=== PATIENT | female | born 1940 | race Caucasian/White ===

== ENCOUNTER 2020-12-18 13:38 | Observation (INO) ==
[2020-12-18 14:34] LABS: Basophils # 0.1 10*3/uL (0.0-0.2); Basophils % 0.6 % (0.0-0.8); Eosinophils # 0.1 10*3/uL (0.0-0.87); Eosinophils % 1.4 % (0.00-10.9); Hematocrit 42.6 VOL% (35.7-47.0); Hemoglobin 13.3 GM/DL (12.0-16.0); Immature Granulocytes % 1.4 %; Immature Granulocytes Absolute 0.12 #; Lymphocytes # 1.2 10*3/uL (1.4-4.0); Lymphocytes % 13.1 % (21.3-54.2); Mean Corpuscular HGB Conc 31.2 GM/DL (32-36); Mean Corpuscular Volume 91.8 FL (87-102); Mean Platelet Volume 9.6 FL (9.6-12.0); Monocytes % 6.1 % (1.7-12.7); Neutrophils % 77.4 % (38.7-73.9); Platelet Count 279 T/CUMM (130-400); Red Blood Count 4.64 MC/CUMM (3.8-5.5); Red Cell Distribution Width 13.8 % (9.3-17.3); White Blood Count 8.8 T/CUMM (4-12)
[2020-12-18] MEDS ORDERED: hydrALAZINE 20 MG/1 ML VIAL IV STA (14:35)
[2020-12-18 14:47] LABS: PT Patient Result 10.5 SECS (9.8-11.9); Partial Thromboplastin Time 24.8 SECS (23.9-33.8)
[2020-12-18 14:54] LABS: Albumin 3.3 G/DL (3.4-5.0); Bilirubin,Total 0.4 MG/DL (0.2-1.0); Calcium 8.8 MG/DL (8.5-10.1); Osmolality,Calculated 277.4 MOS/KG (273-304); Potassium 3.7 MMOL/L (3.5-5.1); Total Protein 7.1 G/DL (5.0-7.5)
[2020-12-18] MEDS ORDERED: LABETALOL 20 MG/4 ML SYRINGE IV PRN (16:21)
[2020-12-18 16:54] LABS: Risk Ratio 3.68; VLDL CHOLESTEROL 39.4 MG/DL
[2020-12-18] MEDS ORDERED: ENOXAPARIN 40 MG/0.4 ML SYRINGE SUBCUT SCH (18:00)
[2020-12-18] MEDS: GABAPENTIN 300 MG CAPSULE PO SCH (21:36)
[2020-12-18] MEDS: traZODone 50 MG TABLET PO SCH (21:36)
[2020-12-19 07:28] LABS: Basophils # 0.1 10*3/uL (0.0-0.2); Basophils % 0.6 % (0.0-0.8); Eosinophils # 0.1 10*3/uL (0.0-0.87); Eosinophils % 1.2 % (0.00-10.9); Hematocrit 45.2 VOL% (35.7-47.0); Hemoglobin 14.3 GM/DL (12.0-16.0); Immature Granulocytes % 1.1 %; Immature Granulocytes Absolute 0.09 #; Lymphocytes # 1.2 10*3/uL (1.4-4.0); Lymphocytes % 14.5 % (21.3-54.2); Mean Corpuscular HGB Conc 31.6 GM/DL (32-36); Mean Corpuscular Volume 90.8 FL (87-102); Mean Platelet Volume 9.5 FL (9.6-12.0); Monocytes % 7.5 % (1.7-12.7); Neutrophils % 75.1 % (38.7-73.9); Platelet Count 283 T/CUMM (130-400); Red Blood Count 4.98 MC/CUMM (3.8-5.5); White Blood Count 8.3 T/CUMM (4-12)
[2020-12-19 07:44] LABS: Albumin 3.2 G/DL (3.4-5.0); Bilirubin,Total 0.4 MG/DL (0.2-1.0); Calcium 8.7 MG/DL (8.5-10.1); Osmolality,Calculated 275.7 MOS/KG (273-304); Potassium 3.5 MMOL/L (3.5-5.1); Total Protein 7.1 G/DL (5.0-7.5)
[2020-12-19] MEDS: LOSARTAN 50 MG TABLET PO SCH (08:33)
[2020-12-19] MEDS: LEVOTHYROXINE 125 MCG TABLET PO SCH (08:33)
[2020-12-19] MEDS: ASPIRIN EC 81 MG TABLET PO SCH (08:50)
[2020-12-19] MEDS: APIXABAN 5 MG TABLET PO SCH ×2 (08:50→20:19)
[2020-12-19] MEDS: ATORVASTATIN 40 MG TABLET PO SCH (09:12)
[2020-12-19] MEDS: amLODIPine 10 MG TABLET PO SCH (14:02)
[2020-12-19 17:03] LABS: Barbiturates Screen,Urine Negative (Negative); Benzodiazepines Screen,Urine Negative (Negative); Cannabinoid Screen,Urine Negative (Negative); Opiate Screen,Urine Positive (Negative); Phencyclidine Screen,Urine Negative (Negative)
[2020-12-19] MEDS: GABAPENTIN 300 MG CAPSULE PO SCH (20:18)
[2020-12-19] MEDS: traZODone 50 MG TABLET PO SCH (20:19)
[2020-12-20 06:10] LABS: Basophils # 0.1 10*3/uL (0.0-0.2); Basophils % 0.6 % (0.0-0.8); Eosinophils # 0.2 10*3/uL (0.0-0.87); Eosinophils % 2.3 % (0.00-10.9); Hematocrit 38.7 VOL% (35.7-47.0); Hemoglobin 12.1 GM/DL (12.0-16.0); Immature Granulocytes % 1.1 %; Immature Granulocytes Absolute 0.09 #; Lymphocytes # 1.5 10*3/uL (1.4-4.0); Lymphocytes % 18.8 % (21.3-54.2); Mean Corpuscular HGB Conc 31.3 GM/DL (32-36); Mean Corpuscular Volume 91.9 FL (87-102); Mean Platelet Volume 10.3 FL (9.6-12.0); Monocytes % 8.4 % (1.7-12.7); Neutrophils % 68.8 % (38.7-73.9); Platelet Count 244 T/CUMM (130-400); Red Blood Count 4.21 MC/CUMM (3.8-5.5); White Blood Count 7.9 T/CUMM (4-12)
[2020-12-20 06:25] LABS: Calcium 8.4 MG/DL (8.5-10.1); Osmolality,Calculated 285.1 MOS/KG (273-304); Potassium 3.4 MMOL/L (3.5-5.1)
[2020-12-20] MEDS ORDERED: POTASSIUM CHLORIDE 20 MEQ TABLET PO ONE (07:15)
[2020-12-20] MEDS: APIXABAN 5 MG TABLET PO SCH ×2 (09:15→20:28)
[2020-12-20] MEDS: ASPIRIN EC 81 MG TABLET PO SCH (09:15)
[2020-12-20] MEDS: amLODIPine 10 MG TABLET PO SCH (09:15)
[2020-12-20] MEDS: LOSARTAN 50 MG TABLET PO SCH (09:16)
[2020-12-20] MEDS: ATORVASTATIN 40 MG TABLET PO SCH (09:17)
[2020-12-20] MEDS: LEVOTHYROXINE 125 MCG TABLET PO SCH (09:17)
[2020-12-20] MEDS: POLYETHYLENE GLYCOL POWDER 17 GM PACK PO SCH (13:00)
[2020-12-20] MEDS: traZODone 50 MG TABLET PO SCH (20:28)
[2020-12-20] MEDS: GABAPENTIN 300 MG CAPSULE PO SCH (20:28)
[2020-12-21 04:43] LABS: Basophils % 0.4 % (0.0-0.8); Eosinophils # 0.2 10*3/uL (0.0-0.87); Eosinophils % 3.5 % (0.00-10.9); Hematocrit 36.9 VOL% (35.7-47.0); Hemoglobin 11.9 GM/DL (12.0-16.0); Immature Granulocytes % 1.3 %; Immature Granulocytes Absolute 0.09 #; Lymphocytes # 1.4 10*3/uL (1.4-4.0); Lymphocytes % 20.2 % (21.3-54.2); Mean Corpuscular HGB Conc 32.2 GM/DL (32-36); Mean Corpuscular Volume 90.2 FL (87-102); Mean Platelet Volume 10.2 FL (9.6-12.0); Monocytes % 9.9 % (1.7-12.7); Neutrophils % 64.7 % (38.7-73.9); Platelet Count 229 T/CUMM (130-400); Red Blood Count 4.09 MC/CUMM (3.8-5.5); White Blood Count 6.8 T/CUMM (4-12)
[2020-12-21 05:05] LABS: Calcium 8.1 MG/DL (8.5-10.1); Osmolality,Calculated 283.1 MOS/KG (273-304); Potassium 3.9 MMOL/L (3.5-5.1)
[2020-12-21] MEDS: POLYETHYLENE GLYCOL POWDER 17 GM PACK PO SCH (08:32)
[2020-12-21] MEDS: amLODIPine 10 MG TABLET PO SCH (08:34)
[2020-12-21] MEDS: ASPIRIN EC 81 MG TABLET PO SCH (08:34)
[2020-12-21] MEDS: ATORVASTATIN 40 MG TABLET PO SCH (08:34)
[2020-12-21] MEDS: LEVOTHYROXINE 125 MCG TABLET PO SCH (08:34)
[2020-12-21] MEDS: APIXABAN 5 MG TABLET PO SCH (08:35)
[2020-12-21] MEDS: LOSARTAN 50 MG TABLET PO SCH (09:00)
[2020-12-21 12:01] VITALS: BP 145/80
== END 2020-12-21 17:25 ==
LOC: N.ED 13:38 → N.EDINP 13:38 → SUATTDRO 16:21 → N.TELES 17:00
PROVIDERS: ADMIT Internal Medicine; ATTEND Internal Medicine

== ENCOUNTER 2021-07-26 10:48 | Observation (INO) ==
[2021-07-26 12:38] LABS: Basophils # 0.1 10*3/uL (0.0-0.2); Basophils % 0.6 % (0.0-0.8); Eosinophils # 0.2 10*3/uL (0.0-0.87); Eosinophils % 2.7 % (0.00-10.9); Hematocrit 44.7 VOL% (35.7-47.0); Immature Granulocytes % 0.9 %; Immature Granulocytes Absolute 0.07 #; Lymphocytes # 1.5 10*3/uL (1.4-4.0); Lymphocytes % 17.9 % (21.3-54.2); Mean Corpuscular HGB Conc 31.3 GM/DL (32-36); Mean Corpuscular Volume 90.5 FL (87-102); Mean Platelet Volume 9.5 FL (9.6-12.0); Monocytes % 8.5 % (1.7-12.7); Neutrophils % 69.4 % (38.7-73.9); Platelet Count 261 T/CUMM (130-400); Red Blood Count 4.94 MC/CUMM (3.8-5.5); Red Cell Distribution Width 13.6 % (9.3-17.3); White Blood Count 8.1 T/CUMM (4-12)
[2021-07-26 12:54] LABS: Risk Ratio 3.29; VLDL Cholesterol 22.6 MG/DL
[2021-07-26 13:05] LABS: Alanine Aminotransferase 19 U/L (13-56); Albumin 3.5 G/DL (3.4-5.0); Alkaline Phosphatase 88 U/L (45-117); Aspartate Amino Transferase 8 U/L (0-37); Blood Urea Nitrogen 17 MG/DL (7-18); Calcium 8.7 MG/DL (8.5-10.1); Carbon Dioxide 29 MMOL/L (21-32); Estimated Glom Filtration Rate 41 ML/MIN; Glucose 124 MG/DL (74-106); Osmolality,Calculated 283.3 MOS/KG (273-304); Potassium 3.9 MMOL/L (3.5-5.1); Sodium 141 MMOL/L (136-145); Total Protein 6.9 G/DL (6.4-8.2)
[2021-07-26 13:10] LABS: INR 0.9; PT Patient Result 10.4 SECS (10.5-12.0); Partial Thromboplastin Time 24.5 SECS (23.8-32.1)
[2021-07-26] MEDS ORDERED: guaiFENesin/DM ER 600-30 MG TABLET PO PRN (13:27)
[2021-07-26] MEDS ORDERED: hydrALAZINE 20 MG/1 ML VIAL IV PRN (13:27)
[2021-07-26] MEDS ORDERED: DOCUSATE SODIUM 100 MG CAPSULE PO PRN (13:27)
[2021-07-26] MEDS ORDERED: ALBUTEROL 2.5 MG/3 ML NEB RESP TX PRN (13:27)
[2021-07-26] MEDS ORDERED: ONDANSETRON 4 MG/2 ML VIAL IV PRN (13:27)
[2021-07-26] MEDS ORDERED: DEXTROSE 50% 25 GM/50 ML VIAL IV PRN (13:27)
[2021-07-26] MEDS ORDERED: ACETAMINOPHEN 325 MG TABLET PO PRN (13:27)
[2021-07-26] MEDS ORDERED: GLUCAGON 1 MG VIAL IM PRN (13:27)
[2021-07-26 14:52] LABS: Amorphous Crystals,Urine Occasional /HPF (Few); Bacteria,Urine Occasional /HPF (Few); Bilirubin,Urine Negative (Negative); Blood, Urine Negative (Negative); Glucose,Urine (UA) Negative (Negative); Hyaline Casts,Urine 1 /LPF (0-3); Ketones,Urine Negative (Negative); Mucus,Urine Occasional /LPF (Occasional); Nitrite,Urine Negative (Negative); Protein,Urine Negative; RBC,Urine 1 /HPF (0-4); Squamous Epithelial Cell,Urine Occasional /HPF (0-10); Urine Appearance Slightly Hazy (Clear); Urine Color Straw (Yellow); Urine Urobilinogen < 2.0 EU/DL (0.2-1.0)
[2021-07-26 17:37] LABS: Barbiturates Screen,Urine Negative (Negative); Benzodiazepines Screen,Urine Negative (Negative); Cannabinoid Screen,Urine Negative (Negative); Opiate Screen,Urine Negative (Negative); Phencyclidine Screen,Urine Negative (Negative)
[2021-07-26] MEDS: FLUOCINONIDE 0.1% TOP SCH (20:35)
[2021-07-26] MEDS: carvediloL 12.5 MG TABLET PO SCH (20:36)
[2021-07-26] MEDS: APIXABAN 5 MG TABLET PO SCH (20:36)
[2021-07-26] MEDS ORDERED: GABAPENTIN 300 MG CAPSULE PO SCH (21:00)
[2021-07-26] MEDS ORDERED: traZODone 50 MG TABLET PO SCH (21:00)
[2021-07-27 06:20] LABS: Basophils # 0.1 10*3/uL (0.0-0.2); Basophils % 0.6 % (0.0-0.8); Eosinophils # 0.3 10*3/uL (0.0-0.87); Eosinophils % 3.5 % (0.00-10.9); Hematocrit 39.1 VOL% (35.7-47.0); Hemoglobin 12.2 GM/DL (12.0-16.0); Immature Granulocytes % 0.6 %; Immature Granulocytes Absolute 0.05 #; Lymphocytes # 1.6 10*3/uL (1.4-4.0); Lymphocytes % 19.8 % (21.3-54.2); Mean Corpuscular HGB Conc 31.2 GM/DL (32-36); Mean Corpuscular Volume 90.9 FL (87-102); Mean Platelet Volume 9.9 FL (9.6-12.0); Neutrophils % 66.5 % (38.7-73.9); Platelet Count 238 T/CUMM (130-400); Red Cell Distribution Width 13.7 % (9.3-17.3); White Blood Count 7.8 T/CUMM (4-12)
[2021-07-27] MEDS ORDERED: amLODIPine 10 MG TABLET PO SCH (09:00)
[2021-07-27] MEDS ORDERED: PANTOPRAZOLE 40 MG TABLET PO SCH (09:00)
[2021-07-27] MEDS ORDERED: LEVOTHYROXINE 125 MCG TABLET PO SCH (09:00)
[2021-07-27] MEDS ORDERED: CALCIUM (CARBONATE)/VITAMIN D 600 MG-400 UNIT TABLET PO SCH (09:00)
[2021-07-27] MEDS: carvediloL 12.5 MG TABLET PO SCH (10:15)
[2021-07-27] MEDS: APIXABAN 5 MG TABLET PO SCH (10:16)
[2021-07-27] MEDS: FLUOCINONIDE 0.1% TOP SCH (10:16)
[2021-07-27 12:28] VITALS: BP 121/84
[2021-07-28] MEDS ORDERED: LEVOTHYROXINE 125 MCG TABLET PO SCH (06:30)
[2021-07-28] MEDS ORDERED: ASPIRIN CHEW 81 MG TABLET PO SCH (09:00)
[2021-07-28] MEDS ORDERED: ATORVASTATIN 80 MG TABLET PO SCH (21:00)
== END 2021-07-27 15:39 | disposition home health service (06) ==
LOC: EDUNIT# → EDBD → N.EDINP 10:48 → N.ED 10:48 → N.2W 16:50
PROVIDERS: ADMIT Internal Medicine Geriatric Medicine; ATTEND Internal Medicine Geriatric Medicine